=== PATIENT | female | born 1975 | race Caucasian/White ===

== ENCOUNTER 2016-12-21 15:07 | Emergency (ER) | payer BC ==
[2016-12-21 17:03] LABS: Hematocrit 36 % (35-47); Hemoglobin 12.3 g/dl (12.0-16.0); Mean Corpuscular HGB Conc 34 g/dl (31-36); Mean Corpuscular Hemoglobin 31 pg (27-31); Mean Corpuscular Volume 89 fL (80-97); Mean Platelet Volume 7 um3 (7.4-10.4); Red Blood Count 4.04 10^6/ul (4.0-5.4); Red Cell Distribution Width 14 % (10.5-15); White Blood Count 8.9 10^3/ul (3.5-10.8)
[2016-12-21 17:17] LABS: Albumin 3.9 g/dL (3.2-5.2); BUN/Creatinine Ratio 15.4 (8-20); C Reactive Protein 12.01 mg/L (< 5.00); Calcium 8.8 mg/dL (8.6-10.3); EGFR African American 104.2 (>60); Globulin 2.8 g/dL (2-4); Potassium 3.2 mmol/L (3.5-5.0); Total Bilirubin 0.3 mg/dL (0.2-1.0); Total Protein 6.7 g/dL (6.4-8.9)
--- NOTE | 2016-12-21 17:52 | RAD ---
HISTORY: Right upper quadrant pain. The patient reports eating lunch at 1215 hours. COMPARISONS: None TECHNIQUE: Multiple transverse and longitudinal ultrasound images were obtained of the right upper quadrant. FINDINGS: LIVER: The liver is normal in dimensions exhibiting mildly increased homogenous echogenicity. Normal hepatic and portal venous blood flow is duplicated with color flow imaging. There is no gross intrahepatic biliary duct dilatation. GALLBLADDER AND EXTRAHEPATIC BILIARY DUCT: Evaluation of the gallbladder is limited due to incomplete distention. The gallbladder is normal in appearance without intraluminal stones or other soft tissue masses. There is no pericholecystic fluid or gallbladder wall thickening. The common bile duct measures a maximum diameter of 2 mm. PANCREAS: The portions of the pancreas not obscured by bowel gas are normal in appearance. RIGHT KIDNEY: The right kidney is normal in size, morphology and echogenicity. AORTA AND IVC: The visualized portions are normal in appearance and not pathologically dilated. IMPRESSION: 1. EVALUATION OF THE GALLBLADDER IS SLIGHTLY LIMITED DUE TO UNDERDISTENTION. THERE IS NO SONOGRAPHIC EVIDENCE OF ACUTE INFLAMMATORY CHANGE OR BILIARY OBSTRUCTION. 2. SONOGRAPHIC FINDINGS COULD BE COMPATIBLE WITH HEPATIC STEATOSIS IN THE CORRECT CLINICAL SETTING.
[2016-12-21 19:00] LABS: Urine Bilirubin Negative (Negative); Urine Glucose Negative (Negative); Urine Nitrite Negative (Negative)
[2016-12-21 19:25] VITALS: BP 153/88
--- NOTE | 2016-12-21 22:16 | ED ---
I, Oh,Sobrando, scribed for Estevan Singleton MD on 12/21/16 at 1628 . Abdominal Pain/Female - HPI Summary HPI Summary: This 41 y/o female presents to ED for acute right sided abd pain since 1230 PM. Pain is constant, but waxing and waning. She initially dismissed the pain as "gas" but decided to visit ED when pain persisted. Pt states that pain radiates along her scar. Pt has had lunch at 1200 PM. Negative nausea. Positive watery diarrhea with 2-3x times yesterday. PSHx includes 2x C-sections and hysterectomy. - History of Current Complaint Chief Complaint: EDAbdPain Stated Complaint: RT SIDE ABD PAIN Time Seen by Provider: 12/21/16 16:00 Hx Obtained From: Patient, Medical Records Onset/Duration: Gradual Onset, Still Present Timing: Constant Pain Intensity: 2 Pain Scale Used: 0-10 Numeric Location: Discrete At: RLQ Radiates: No Aggravating Factor(s): Nothing Alleviating Factor(s): Nothing Associated Signs and Symptoms: Positive: Diarrhea - watery. Negative: Fever Allergies/Adverse Reactions: Allergies Allergy/AdvReac Type Severity Reaction Status Date / Time Penicillins Allergy Unknown Verified 10/27/14 16:50 Reaction Details chlorohexidine gluconate Allergy Mild Rash Uncoded 06/19/15 10:15 FD&C YELLOW #6 Allergy Mild Rash Uncoded 06/20/15 14:35 PMH/Surg Hx/FS Hx/Imm Hx Endocrine/Hematology History: Denies: Hx Diabetes Respiratory History: Reports: Hx Asthma - Surgical History Surgery Procedure, Year, and Place: 2 c sections. hyster Infectious Disease History: Yes Infectious Disease History: Denies: History Other Infectious Disease, Traveled Outside the [place] in Last 30 Days - Family History Known Family History: Positive: Cardiac Disease - MD to mother - Social History Alcohol Use: Occasionally Substance Use Type: Reports: None Smoking Status (MU): Never Smoked Tobacco Review of Systems Negative: Fever Positive: Abdominal Pain - RUQ pain, Diarrhea - watery. Negative: Vomiting, Nausea All Other Systems Reviewed And Are Negative: Yes Physical Exam Triage Information Reviewed: Yes Vital Signs On Initial Exam: Initial Vitals Temp Pulse Resp BP Pulse Ox 98.7 F 77 20 168/79 96 12/21/16 15:10 12/21/16 15:10 12/21/16 15:10 12/21/16 15:10 12/21/16 15:10 Vital Signs Reviewed: Yes Appearance: Positive: Well-Appearing, No Pain Distress, Obese Skin: Positive: Warm, Skin Color Reflects Adequate Perfusion, Dry Head/Face: Positive: Normal Head/Face Inspection Eyes: Positive: EOMI, DAYANA Neck: Positive: Supple, Nontender Respiratory/Lung Sounds: Positive: Clear to Auscultation, Breath Sounds Present Cardiovascular: Positive: RRR, Pulses are Symmetrical in both Upper and Lower Extremities Abdomen Description: Positive: Other: - Positive RUQ tenderness Musculoskeletal: Positive: Strength/ROM Intact Neurological: Positive: Sensory/Motor Intact, Alert, Oriented to Person Place, Time Psychiatric: Positive: Affect/Mood Appropriate AVPU Assessment: Alert - [place] Coma Scale Coma Scale Total: 15 Diagnostics - Vital Signs Vital Signs Temp Pulse Resp BP Pulse Ox 12/21/16 15:37 97.8 F 75 20 143/88 97 12/21/16 15:10 98.7 F 77 20 168/79 96 - Laboratory Lab Results: Lab Results 12/21/16 12/21/16 12/21/16 Range/Units 16:48 16:48 16:48 WBC 8.9 (3.5-10.8) 10^3/ul RBC 4.04 (4.0-5.4) 10^6/ul Hgb 12.3 (12.0-16.0) g/dl Hct 36 (35-47) % MCV 89 (80-97) fL MCH 31 (27-31) pg MCHC 34 (31-36) g/dl RDW 14 (10.5-15) % Plt Count 216 (150-450) 10^3/ul MPV 7 L (7.4-10.4) um3 Neut % (Auto) 71.3 (38-83) % Lymph % (Auto) 20.6 L (25-47) % Sherman % (Auto) 5.5 (1-9) % Eos % (Auto) 1.9 (0-6) % Baso % (Auto) 0.7 (0-2) % Absolute Neuts (auto) 6.3 (1.5-7.7) 10^3/ul Absolute Lymphs (auto) 1.8 (1.0-4.8) 10^3/ul Absolute Monos (auto) 0.5 (0-0.8) 10^3/ul Absolute Eos (auto) 0.2 (0-0.6) 10^3/ul Absolute Basos (auto) 0.1 (0-0.2) 10^3/ul Absolute Nucleated RBC 0 10^3/ul Nucleated RBC % 0 Sodium 139 (133-145) mmol/L Potassium 3.2 L (3.5-5.0) mmol/L Chloride 106 (101-111) mmol/L Carbon Dioxide 27 (22-32) mmol/L Anion Gap 6 (2-11) mmol/L BUN 12 (6-24) mg/dL Creatinine 0.78 (0.51-0.95) mg/dL Est GFR ( Amer) 104.2 (>60) Est GFR (Non-Af Amer) 81.0 (>60) BUN/Creatinine Ratio 15.4 (8-20) Glucose 104 H (70-100) mg/dL Lactic Acid 1.2 (0.5-2.0) mmol/L Calcium 8.8 (8.6-10.3) mg/dL Total Bilirubin 0.30 (0.2-1.0) mg/dL AST 16 (13-39) U/L ALT 26 (7-52) U/L Alkaline Phosphatase 98 (34-104) U/L C-Reactive Protein 12.01 H (< 5.00) mg/L Total Protein 6.7 (6.4-8.9) g/dL Albumin 3.9 (3.2-5.2) g/dL Globulin 2.8 (2-4) g/dL Albumin/Globulin Ratio 1.4 (1-3) Lipase 12 (11.0-82.0) U/L Urine Color Urine Appearance Urine pH (5-9) Ur Specific [place] (1.010-1.030) Urine Protein (Negative) Urine Ketones (Negative) Urine Blood (Negative) Urine Nitrate (Negative) Urine Bilirubin (Negative) Urine Urobilinogen (Negative) Ur Leukocyte Esterase (Negative) Urine Glucose (Negative) 12/21/16 Range/Units 18:40 WBC (3.5-10.8) 10^3/ul RBC (4.0-5.4) 10^6/ul Hgb (12.0-16.0) g/dl Hct (35-47) % MCV (80-97) fL MCH (27-31) pg MCHC (31-36) g/dl RDW (10.5-15) % Plt Count (150-450) 10^3/ul MPV (7.4-10.4) um3 Neut % (Auto) (38-83) % Lymph % (Auto) (25-47) % Sherman % (Auto) (1-9) % Eos % (Auto) (0-6) % Baso % (Auto) (0-2) % Absolute Neuts (auto) (1.5-7.7) 10^3/ul Absolute Lymphs (auto) (1.0-4.8) 10^3/ul Absolute Monos (auto) (0-0.8) 10^3/ul Absolute Eos (auto) (0-0.6) 10^3/ul Absolute Basos (auto) (0-0.2) 10^3/ul Absolute Nucleated RBC 10^3/ul Nucleated RBC % Sodium (133-145) mmol/L Potassium (3.5-5.0) mmol/L Chloride (101-111) mmol/L Carbon Dioxide (22-32) mmol/L Anion Gap (2-11) mmol/L BUN (6-24) mg/dL Creatinine (0.51-0.95) mg/dL Est GFR ( Amer) (>60) Est GFR (Non-Af Amer) (>60) BUN/Creatinine Ratio (8-20) Glucose (70-100) mg/dL Lactic Acid (0.5-2.0) mmol/L Calcium (8.6-10.3) mg/dL Total Bilirubin (0.2-1.0) mg/dL AST (13-39) U/L ALT (7-52) U/L Alkaline Phosphatase (34-104) U/L C-Reactive Protein (< 5.00) mg/L Total Protein (6.4-8.9) g/dL Albumin (3.2-5.2) g/dL Globulin (2-4) g/dL Albumin/Globulin Ratio (1-3) Lipase (11.0-82.0) U/L Urine Color Yellow Urine Appearance Clear Urine pH 6.0 (5-9) Ur Specific [place] 1.018 (1.010-1.030) Urine Protein Negative (Negative) Urine Ketones Negative (Negative) Urine Blood Negative (Negative) Urine Nitrate Negative (Negative) Urine Bilirubin Negative (Negative) Urine Urobilinogen Negative (Negative) Ur Leukocyte Esterase Negative (Negative) Urine Glucose Negative (Negative) Result Diagrams: 12/21/16 16:48 12/21/16 16:48 Lab Statement: Any lab studies that have been ordered have been reviewed, and results considered in the medical decision making process. - Additional Comments Diagnostic Additional Comments: US Gallbladder -- 1. EVALUATION OF THE GALLBLADDER IS SLIGHTLY LIMITED DUE TO UNDERDISTENTION. THERE IS NO SONOGRAPHIC EVIDENCE OF ACUTE INFLAMMATORY CHANGE OR BILIARY OBSTRUCTION. 2. SONOGRAPHIC FINDINGS COULD BE COMPATIBLE WITH HEPATIC STEATOSIS IN THE CORRECT CLINICAL SETTING. Re-Evaluation - Re-Evaluation First Eval Re-Evaluation Time: 18:38 Comment: MD in room to update pt on blood work and US imaging result. Second Eval Re-Evaluation Time: 19:17 Comment: MD in room to update pt on benign UA results. Plan of care involving discharge and outpatient f/u is discussed, and pt is agreeable. Abdominal Pain Fem Course/Dx - Course Course Of Treatment: Ms. Grullon has had RUQ pain since 1230 after eating at about 1200. The pain was mild an unaccompanied by N/V. The W/U here was negative and she refused pain medication. - Diagnoses Provider Diagnoses: Abdominal pain Discharge - Discharge Plan Condition: Stable Disposition: HOME Patient Education Materials: Abdominal Pain (ED) Referrals: Matthias Mancia MD [Primary Care Provider] - 2 Days The documentation as recorded by the Kayode scanlon Soohyun accurately reflects the service I personally performed and the decisions made by , Estevan Singleton MD.
== END 2016-12-21 19:31 | disposition home or self-care (01) ==
LOC: ED 15:07
DX: R10.31 Right lower quadrant pain (principal); R19.7 Diarrhea, unspecified
CPT/HCPCS: 36415; 76705; 80053; 81003; 83605; 83690; 85025; 86140; 99283

== ENCOUNTER 2016-12-31 14:13 | Emergency (ER) | payer BC ==
[2016-12-31 16:43] LABS: Hematocrit 38 % (35-47); Hemoglobin 13.1 g/dl (12.0-16.0); Mean Corpuscular HGB Conc 34 g/dl (31-36); Mean Corpuscular Hemoglobin 30 pg (27-31); Mean Corpuscular Volume 89 fL (80-97); Mean Platelet Volume 7 um3 (7.4-10.4); Red Cell Distribution Width 14 % (10.5-15); White Blood Count 9.6 10^3/ul (3.5-10.8)
[2016-12-31 16:58] LABS: ALT 22 U/L (7-52); AST 13 U/L (13-39); Albumin 3.9 g/dL (3.2-5.2); Alkaline Phosphatase 98 U/L (34-104); Anion Gap 7 mmol/L (2-11); Blood Urea Nitrogen 16 mg/dL (6-24); C Reactive Protein 10.98 mg/L (< 5.00); CO2 Carbon Dioxide 25 mmol/L (22-32); Calcium 9.1 mg/dL (8.6-10.3); Chloride 107 mmol/L (101-111); EGFR African American 130.9 (>60); EGFR Non-African American 101.8 (>60); Globulin 3.1 g/dL (2-4); Glucose 109 mg/dL (70-100); Lipase 17 U/L (11.0-82.0); Potassium 3.4 mmol/L (3.5-5.0); Sodium 139 mmol/L (133-145)
--- NOTE | 2016-12-31 17:39 | RAD ---
Indication: Right lower abdominal pain. Real-time sonography of the pelvis was performed utilizing transabdominal technique. The patient is status post hysterectomy. The right ovary is not visualized. The left ovary measures 2.9 x 2.6 x 2.7 cm. IMPRESSION: Normal left ovary. Patient is status post hysterectomy. Right ovary not visualized.
[2016-12-31] MEDS ORDERED: Iohexol 300* (CONTRAST) 10 ML SDV IV ONE (19:32)
--- NOTE | 2016-12-31 21:07 | RAD ---
Indication: Right adnexal pain. Contrast:Administered 100.3 ml of OMNIPAQUE 300 mg/ml CT of the abdomen and pelvis was performed after oral and IV contrast administration. Coronal and sagittal reconstructed images were obtained. Lung bases demonstrate no pleural fluid, nodules or masses. Heart is of normal size without evidence of pericardial effusion. Liver is normal in size. No focal lesions or intrahepatic ductal dilatation is noted. The gallbladder demonstrates no calcified gallstones. No pericholecystic fluid or wall thickening is noted. The pancreas demonstrates no mass or pancreatic duct dilatation. Spleen is normal in size. No adrenal masses are noted. The kidneys demonstrate no hydronephrosis. No retroperitoneal lymphadenopathy is noted. No dilated loops of bowel are noted. CT of the pelvis demonstrates left ovary to be unremarkable with a follicular cyst in the left ovary measuring 2.8 cm. Right ovary is visualized and is otherwise unremarkable. No appendicitis is noted. The [place] bladder is unremarkable. IMPRESSION: Unremarkable ovaries. The patient status post hysterectomy. No abnormal masses or fluid collections are noted.
[2016-12-31 22:28] VITALS: BP 176/73
--- NOTE | 2017-01-04 12:43 | ED ---
Progress - Progress Note Progress Note: Pt's vaginal cx reveals BV. Visit report indicates pt presented w/ c/o ab pain - no anbx rx'd. LMTC to see if she has f/u'd w/ PCP as advised - if having symptoms, may need to start clindamycin or flagyl. Course/Dx - Diagnoses Provider Diagnoses: Abdominal pain
== END 2016-12-31 22:25 | disposition home or self-care (01) ==
LOC: ED 14:13
DX: R10.31 Right lower quadrant pain (principal)
CPT/HCPCS: 36415; 74177; 76830; 76856; 80053; 83605; 83690; 84702; 85025; 86140; 87040; 87480; 87491; 87510; 87591; 87661; 96374; 99283; Q9967

== ENCOUNTER 2021-02-18 05:58 | Inpatient (IN) ==
[2021-02-18] MEDS ORDERED: Lactated Ringers 1000 ml BAG 1,000 ML IV SCH (06:00)
[2021-02-18] MEDS ORDERED: Famotidine IV 10 MG/ML 2 ml VIAL (20 mg) IV ONE (06:00)
[2021-02-18] MEDS ORDERED: Buffered Lidocaine 1% SYRIN 1 ml INTRADERM ONE (06:00)
[2021-02-18] MEDS ORDERED: Dexamethasone IV 4 MG/ML VIAL 1 ml VIAL IV SLOW PU ONE (06:00)
[2021-02-18] MEDS ORDERED: Heparin 5000 UNITS/ML 1 mL VIAL ONE (06:13)
[2021-02-18] MEDS ORDERED: Clindamycin 900 MG/D5W BAG 900 MG/50 ML BAG IVPB ONE (06:13)
[2021-02-18] MEDS ORDERED: Dexamethasone IV 4 MG/ML VIAL 1 ml VIAL ONE ×2 (06:13→06:55)
[2021-02-18] MEDS ORDERED: Famotidine IV 10 MG/ML 2 ml VIAL (20 mg) ONE (06:13)
[2021-02-18] MEDS ORDERED: Propofol 10 MG/ML 20 ML BTL ONE (06:55)
[2021-02-18] MEDS ORDERED: Rocuronium 50 mg VIAL 10 mg/ml 5 ml VIAL (50 mg) ONE ×2 (06:55→09:44)
[2021-02-18] MEDS ORDERED: Ondansetron 4 mg VIAL 2 MG/ML 2 ml VIAL ONE (06:55)
[2021-02-18] MEDS ORDERED: Lidocaine 2% PF 5 ML VIAL ONE (06:55)
[2021-02-18] MEDS ORDERED: fentaNYL 100 mcg/2 ml 50 MCG/ML VIAL ONE ×2 (06:55→08:45)
[2021-02-18] MEDS ORDERED: Midazolam 2 mg/2 ml VIAL 1 mg/ml 2 ml VIAL (2 mg) ONE (06:56)
[2021-02-18] MEDS ORDERED: Bupivacaine 0.25% SDV 30 ML ONE (07:08)
[2021-02-18] MEDS ORDERED: Methylene Blue 0.5 % 50 MG/10 ML AMP IV ONE (07:08)
[2021-02-18] MEDS ORDERED: Prochlorperazine 5 mg/ml 2 ml VIAL (10 mg) IV PRN (08:10)
[2021-02-18] MEDS ORDERED: Naloxone 0.4 mg VIAL 0.4 mg/ml 1 ml VIAL IV PRN (08:10)
[2021-02-18] MEDS ORDERED: Levalbuterol 0.63MG/3ML NEB UNIT OF USE INH PRN (08:10)
[2021-02-18] MEDS ORDERED: Morphine 4 MG/ML VIAL (1 ml) IV PRN (08:10)
[2021-02-18] MEDS ORDERED: fentaNYL 100 mcg/2 ml 50 MCG/ML VIAL IV PRN (08:10)
[2021-02-18] MEDS ORDERED: Phenylephrine IV 10 MG/ML 1 ml VIAL ONE (08:14)
[2021-02-18] MEDS ORDERED: Glycopyrrolate IV 0.2 MG/ML 1 ML VIAL ONE (08:26)
[2021-02-18] MEDS ORDERED: EPHEDrine (Pressors) 50 MG/ML VIAL ONE (08:28)
[2021-02-18] MEDS ORDERED: Acetaminophen IV 1 GM/100ML 100 ML IV ONE (10:38)
[2021-02-18] MEDS ORDERED: HYDROmorphone 1 MG/1 ML SYRINGE ONE (10:45)
[2021-02-18] MEDS ORDERED: HYDROmorphone 0.5 MG/0.5 ML SYRINGE IV SLOW PU PRN (11:01)
[2021-02-18] MEDS ORDERED: HYDROcodone/ACET. 7.5/325 LIQ 15 ML UDC PO PRN (11:01)
[2021-02-18] MEDS ORDERED: Albuterol/Ipratropium NEB.SOL (2.5/0.5 MG) 3 ML NEB.SOLN INH PRN (11:48)
[2021-02-18] MEDS: Lactated Ringers 1000 ml BAG 1,000 ML IV SCH ×2 (12:24→20:12)
[2021-02-18] MEDS: Ondansetron 4 mg VIAL 2 MG/ML 2 ml VIAL IV PRN (16:16)
[2021-02-18] MEDS: Heparin 5000 UNITS/ML 1 mL VIAL SUBCUT SCH (23:39)
[2021-02-18] MEDS: PTO: Budesonide/Formote 160/4.5(NF) MDI INH SCH (23:43)
[2021-02-19] MEDS: Lactated Ringers 1000 ml BAG 1,000 ML IV SCH ×2 (02:56→10:06)
[2021-02-19] MEDS: Heparin 5000 UNITS/ML 1 mL VIAL SUBCUT SCH ×3 (06:08→21:48)
[2021-02-19] MEDS ORDERED: Flu vaccine *QUAD* 2021-22* 0.5 ML SYRINGE IM ONE (09:00)
[2021-02-19] MEDS: D5W 1/2 NS KCl 20 meq 1000 ml 1,000 ML IV SCH ×2 (11:52→21:49)
[2021-02-19] MEDS: Ondansetron 4 mg VIAL 2 MG/ML 2 ml VIAL IV PRN (17:30)
[2021-02-19] MEDS: PTO: Budesonide/Formote 160/4.5(NF) MDI INH SCH (21:47)
[2021-02-19] MEDS ORDERED: Metoclopramide 5 MG/ML VIAL (10 mg) IV PRN (22:12)
[2021-02-20] MEDS: D5W 1/2 NS KCl 20 meq 1000 ml 1,000 ML IV SCH (05:58)
[2021-02-20] MEDS: Heparin 5000 UNITS/ML 1 mL VIAL SUBCUT SCH ×2 (05:59→14:13)
[2021-02-20 11:08] VITALS: BP 151/84
[2021-02-21] MEDS ORDERED: Scopolamine PATCH Remove NOTE PATCH OFF ONE (06:00)
== END 2021-02-20 17:45 | disposition home or self-care (01) | DRG 621 ==
LOC: AA 05:58 → SSU 12:04
PROVIDERS: ADMIT Surgery; ATTEND Surgery